=== PATIENT | female | born 1965 | race Caucasian/White ===

== ENCOUNTER 2021-06-15 15:48 | Emergency (ER) | payer BC ==
[~2021-06-15] VITALS: Ht 172.7 cm; Wt 63.5 kg
--- NOTE | 2021-06-15 15:48 | NUR ---
Patient arrived in full C-Spine precautions with hard C-collar in place. MERI Doll at BS for eval..
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
--- NOTE | 2021-06-15 16:05 | NUR ---
THE PATIENT IS TAKEN TO CT VIA [facility]
--- NOTE | 2021-06-15 16:12 | NUR ---
THE PATIENT IS BACK FROM CT VIA [facility]
[2021-06-15] MEDS ORDERED: DIAZEPAM 5 MG TABLET ONE (16:17)
[2021-06-15] MEDS ORDERED: KETOROLAC TROMETHAMINE INJ 30 MG/ML VIAL ONE (16:17)
[2021-06-15] MEDS: KETOROLAC TROMETHAMINE INJ 60 MG/2 ML VIAL IM ONE (16:26)
[2021-06-15] MEDS: DIAZEPAM 5 MG TABLET PO ONE (16:26)
[2021-06-15] MEDS ORDERED: NAPR500T6 PO (17:03)
[2021-06-15] MEDS ORDERED: CARI350T PO (17:03)
[2021-06-15 17:15] VITALS: BP 109/71
--- NOTE | 2021-06-15 17:15 | NUR ---
Patient discharged to home in stable condition. Written and verbal after care instructions given. Patient verbalizes understanding of instruction.
== END 2021-06-15 17:15 | disposition home or self-care (01) ==
LOC: ER 16:00
DX: S16.1XXA Strain of muscle, fascia and tendon at neck level, initial encounter (principal); S43.52XA Sprain of left acromioclavicular joint, initial encounter; E04.1 Nontoxic single thyroid nodule; M47.892 Other spondylosis, cervical region; V43.52XA Car driver injured in collision with other type car in traffic accident, initial encounter; Y93.89 Activity, other specified; Y92.410 Unspecified street and highway as the place of occurrence of the external cause; Y99.8 Other external cause status
CPT/HCPCS: 72125; 96372; 99284; J1885